=== PATIENT | female | born 1970 | race Caucasian/White ===

== ENCOUNTER 2018-05-28 13:17 | Inpatient (IN) | payer BC ==
[~2018-05-28] VITALS: Ht 162.6 cm; Wt 148.3 kg
[2018-05-28] MEDS ORDERED: MORPHINE SULFATE INJ 4 MG/ML INJ IV STA (13:33)
[2018-05-28] MEDS ORDERED: ONDANSETRON HCL INJ 2 MG/ML VIAL IV STA (13:33)
[2018-05-28] MEDS ORDERED: VANCOMYCIN 1GM/NS 250 ML 250 ML IV ONE (14:15)
--- NOTE | 2018-05-28 14:33 | Diagnostic Imaging Report ---
PROCEDURE: CHEST SINGLE (PORTABLE) COMPARISON: None. INDICATIONS: SHORTNESS OF BREATH, LEFT ANKLE INFECTION FINDINGS: LUNGS: No consolidations or edema. PLEURA: No effusions or pneumothorax. HEART \T\ MEDIASTINUM: The heart is within normal size-limits. BONES \T\ SOFT TISSUES: No acute findings. CONCLUSION: No acute thoracic abnormality. Sandoval Salinas D.O. Dictated by: Sandoval Salinas D.O. on 05/28/2018 at 14:37 Electronically approved by: Sandoval Salinas D.O. on 05/28/2018 at 14:37
[2018-05-28 14:41] LABS: BASOPHILS % 0.4 % (0.0-1.0); HEMATOCRIT 40.1 % (34.2-44.1); LYMPHOCYTES # (AUTO) 1.6 (1.0-3.2); LYMPHOCYTES % 27.7 % (18.0-39.1); MEAN CORPUSCULAR HEMOGLOBIN 27.8 pg (28-32); MEAN CORPUSCULAR HGB CONC 32.4 g/dL (31-35); MEAN CORPUSCULAR VOLUME 85.7 fL (81-99); MONOCYTES # (AUTO) 0.4 (0.2-0.8); MONOCYTES % 6.2 % (4.4-11.3); NEUTROPHILS # (AUTO) 3.7 (2.1-6.9); NEUTROPHILS % 65.3 % (38.7-80.0); PLATELET COUNT 102 x10e3/uL (140-360); RED BLOOD COUNT 4.68 x10e6/uL (3.6-5.1); RED CELL DISTRIBUTION WIDTH 15.9 % (11.7-14.4)
[2018-05-28 14:44] LABS: BILIRUBIN,URINE NEGATIVE (NEGATIVE); CLARITY,URINE SL CLOUDY (CLEAR); COLOR,URINE YELLOW (YELLOW); KETONES,URINE NEGATIVE (NEGATIVE); LEUKOCYTE ESTERASE ,URINE NEGATIVE (NEGATIVE); NITRITE,URINE NEGATIVE (NEGATIVE); PROTEIN,URINE DIPSTICK NEGATIVE (NEGATIVE); URINE UROBILINOGEN 1 mg/dL (0.2 - 1)
[2018-05-28 14:49] LABS: INR 1.2; PROTHROMBIN TIME 14.3 seconds (11.9-14.5)
[2018-05-28 14:50] LABS: PARTIAL THROMBOPLASTIN TIME 41.9 seconds (23.8-35.5)
[2018-05-28 14:57] LABS: ALANINE AMINOTRANSFERASE 38 IU/L (0-55); ALBUMIN 3.6 g/dL (3.5-5.0); ALBUMIN/GLOBULIN RATIO 0.8 (0.8-2.0); ALKALINE PHOSPHATASE 136 IU/L (40-150); ANION GAP 12.9 mmol/L (8-16); BLOOD UREA NITROGEN 9 mg/dL (7-26); BUN/CREATININE RATIO 12 (6-25); CALCIUM 9.3 mg/dL (8.4-10.2); CARBON DIOXIDE 23 mmol/L (22-29); CHLORIDE 108 mmol/L (98-107); CREATINE KINASE 71 IU/L (29-168); CREATININE, SERUM 0.75 mg/dL (0.57-1.11); EST GLOMERULAR FILTRATION RATE > 60 ML/MIN (60-); GLUCOSE 91 mg/dL (74-118); POTASSIUM 3.9 mmol/L (3.5-5.1); SODIUM 140 mmol/L (136-145)
[2018-05-28 14:58] LABS: BACTERIA,URINE MANY /HPF; EPITHELIAL CELLS,URINE MANY /LPF; RBC,URINE 0-5 /HPF (0-5)
[2018-05-28] MEDS ORDERED: SODIUM CHLORIDE 0.9% 1000ML 1,000 ML IV SCH (15:48)
[2018-05-28] MEDS ORDERED: MORPHINE SULFATE 2 MG/ML SYR IV PRN (16:00)
[2018-05-28] MEDS ORDERED: HYDROMORPHONE HC2 MG PO ×2 (16:52→20:14)
[2018-05-28] MEDS ORDERED: CYMBALTA60 MG (16:52)
[2018-05-28] MEDS ORDERED: LYRICA50 MG (16:52)
[2018-05-28] MEDS ORDERED: PIPER-TAZ 3.375 GM 50 ML IV SCH (18:00)
[2018-05-28] MEDS ORDERED: farxiga PO (18:36)
[2018-05-28 19:50] VITALS: BP 164/86
[2018-05-28 20:00] VITALS: BP 164/86
[2018-05-28 20:09] VITALS: BP 164/86
[2018-05-28] MEDS ORDERED: HYDROCODONE/APAP 5MG-325MG TAB PO PRN (20:15)
[2018-05-28] MEDS ORDERED: MORPHINE SULFATE INJ 4 MG/ML INJ IV PRN (20:15)
[2018-05-28] MEDS ORDERED: HYDRALAZINE HCL 20 MG/ML VIAL IV PRN (20:30)
[2018-05-28] MEDS ORDERED: CLONIDINE HCL 0.1 MG TAB PO PRN (20:30)
[2018-05-28] MEDS ORDERED: ACETAMINOPHEN 325 MG TAB PO PRN (20:30)
[2018-05-28] MEDS: CEFEPIME HCL 2 GM VIAL IV SCH (20:54)
[2018-05-28] MEDS: PREGABALIN 50 MG CAP PO SCH (20:54)
[2018-05-28] MEDS ORDERED: VANCOMYCIN 1GM/NS 250 ML 250 ML IV SCH (21:00)
[2018-05-28] MEDS: HYDROMORPHONE HCL 2 MG TAB PO PRN (21:09)
[2018-05-28] MEDS: MORPHINE SULFATE 2 MG/ML SYR IV PRN (22:56)
[2018-05-29] VITALS (7 sets, daily range): BP systolic 132–158; BP diastolic 64–85
[2018-05-29] MEDS ORDERED: MORPHINE SULFATE 2 MG/ML SYR IV PRN
[2018-05-29] MEDS ORDERED: HYDROMORPHONE HCL 2 MG TAB PO PRN
[2018-05-29] MEDS ORDERED: HYDROMORPHONE HCL 2 MG TAB PO SCH
[2018-05-29] MEDS: VANCOMYCIN 1GM/NS 250 ML 250 ML IV SCH ×2 (01:40→14:45)
[2018-05-29] MEDS: HYDROMORPHONE HCL 2 MG TAB PO PRN ×5 (02:01→21:08)
[2018-05-29 04:05] LABS: BASOPHILS % 0.5 % (0.0-1.0); HEMATOCRIT 38.1 % (34.2-44.1); HEMOGLOBIN 12.2 g/dL (12.0-16.0); LYMPHOCYTES % 32.4 % (18.0-39.1); MEAN CORPUSCULAR HEMOGLOBIN 27.9 pg (28-32); MEAN CORPUSCULAR VOLUME 87.2 fL (81-99); MONOCYTES # (AUTO) 0.4 (0.2-0.8); MONOCYTES % 6.1 % (4.4-11.3); NEUTROPHILS # (AUTO) 3.8 (2.1-6.9); NEUTROPHILS % 60.8 % (38.7-80.0); PLATELET COUNT 97 x10e3/uL (140-360); RED BLOOD COUNT 4.37 x10e6/uL (3.6-5.1); RED CELL DISTRIBUTION WIDTH 15.9 % (11.7-14.4)
[2018-05-29 04:20] LABS: ANION GAP 11.3 mmol/L (8-16); BLOOD UREA NITROGEN 10 mg/dL (7-26); BUN/CREATININE RATIO 14 (6-25); CALCIUM 9.3 mg/dL (8.4-10.2); CARBON DIOXIDE 25 mmol/L (22-29); CHLORIDE 106 mmol/L (98-107); CHOL/HDL RATIO 4.4 (3.0-3.6); CHOLESTEROL 128 MD/DL (0-199); CREATININE, SERUM 0.74 mg/dL (0.57-1.11); EST GLOMERULAR FILTRATION RATE > 60 ML/MIN (60-); GLUCOSE 95 mg/dL (74-118); HDL CHOLESTEROL 29 MG/DL (40-60); LDL CHOLESTEROL 77 MG/DL (60-130); MAGNESIUM 2.1 MG/DL (1.3-2.1); POTASSIUM 4.3 mmol/L (3.5-5.1); SODIUM 138 mmol/L (136-145); TRIGLYCERIDES 108 MG/DL (0-149)
[2018-05-29 04:28] LABS: B-TYPE NATRIURETIC PEPTIDE2 15.8 pg/mL (0-100)
[2018-05-29 04:41] LABS: FREE T4 (FREE THYROXINE) 0.99 ng/dL (0.9-1.8); THYROID STIMULATING HORMONE 4.355 uIU/mL (0.350-4.940)
[2018-05-29] MEDS: CEFEPIME HCL 2 GM VIAL IV SCH ×2 (07:15→18:17)
[2018-05-29] MEDS: FAMOTIDINE 20 MG TAB PO SCH ×2 (07:47→16:30)
[2018-05-29] MEDS: MORPHINE SULFATE 2 MG/ML SYR IV PRN ×2 (08:15→19:31)
[2018-05-29] MEDS: ONDANSETRON HCL INJ 2 MG/ML VIAL IV PRN (08:15)
[2018-05-29] MEDS: FARXIGA 10 MG PO SCH (09:00)
[2018-05-29] MEDS: PREGABALIN 50 MG CAP PO SCH ×3 (09:26→21:08)
[2018-05-29] MEDS ORDERED: DEXTROSE 50% SYRINGE 50 ML IV PRN (13:00)
--- NOTE | 2018-05-29 16:05 | History and Physical ---
PRIMARY CARE PROVIDER: Dr. Sami Stanley who does not come here. CHIEF COMPLAINT: Cellulitis, left lower leg. HISTORY OF PRESENT ILLNESS: Ms. Hou is a 48-year-old lady who has noticed for the past 2 days worsening erythema and swelling about the left ankle. REVIEW OF SYSTEMS: She has had some subjective fever and chills. She denies weight loss. She denies sinus congestion or sore throat. She denies chest pain or palpitation. She denies shortness of breath, wheezing or cough. She denies abdominal pain, nausea, vomiting, or melena. She denies dysuria or flank pain. She has a rash and cellulitis of the left lower extremity as noted above. She denies joint pain or swelling. She denies bleeding or bruising. She denies headache, vertigo or loss of consciousness. Denies depression, agitation, homicide, or suicidal ideation. PAST MEDICAL HISTORY: Significant for type 2 diabetes, which is well controlled. Her A1c level is 6.6. She also has lupus and fibromyalgia for which she takes Dilaudid 2 mg q.4 h. as needed and Lyrica 50 mg 3 times a day. Cymbalta 60 mg daily. For her diabetes, she takes Farxiga 10 mg daily. She has a distant history of hysterectomy and appendectomy. She is a nonsmoker. ALLERGIES: SHE HAS A STATED ALLERGY TO PENICILLIN. FAMILY HISTORY: Has some diabetes. SOCIAL HISTORY: The patient is . [place] is her primary language. She does not smoke, drink or use illegal drugs. She is generally independently functioning. PHYSICAL EXAMINATION PSYCHIATRIC: She is alert and oriented times 3 with normal mood and affect. CONSTITUTIONAL: She is somewhat overweight with a BMI of 56. Weighs 327 pounds. Would classify her as morbidly obese. VITAL SIGNS: Blood pressure 132/82, pulse 83, respiratory rate 19, O2 sat 94% on room air, temperature 97.4. HEENT: Her head is atraumatic. Her eyes are anicteric with clear conjunctivae. Ears and nares are without erythema or discharge. Oropharynx is clear. NECK: Supple with no mass or thyromegaly. LYMPHATIC SYSTEM: She has no palpable cervical, axillary or inguinal adenopathy. CARDIOVASCULAR: Her heart has a regular rate and rhythm without murmur or extra heart sounds. She has no carotid bruit. She has trace edema in the left pretibial and ankle area. No edema on the right. She has palpable dorsal pedal pulses. RESPIRATORY: Lungs are clear to auscultation and percussion with normal respiratory effort. GASTROINTESTINAL: Abdomen is soft without organomegaly, masses or tenderness. She has normal bowel sounds present. CUTANEOUS: Her skin is warm and dry to touch. She has erythema extending from the left ankle to just below the knee that is circumferential with some mild swelling and edema. MUSCULOSKELETAL: Her joints are in normal alignment without erythema or swelling. She has no calf tenderness. NEUROLOGIC: Nonfocal with intact cranial nerves and no motor or sensory deficits. DIAGNOSTIC STUDIES: Chest x-ray shows no acute disease. Venous Doppler of the left leg is negative for DVT. Her CBC shows a white count of 6.18 with 61% neutrophils, hemoglobin 12.2, hematocrit 38.1, and platelet count 97,000. Her coags are normal. Chemistry shows normal electrolytes. CO2 is 25, creatinine 0.74, BUN 10, glucose is 95. Calcium 9.3. Magnesium 2.1. Transaminases, bilirubin and alk phos were all normal. A1c level is 6.6. Cholesterol 128, triglyceride 108, HDL 29, LDL 77. TSH is 4.355 and free T4 is 0.99, both normal. IMPRESSION AND PLAN 1. Cellulitis, left lower leg: Intravenous vancomycin and cefepime started. Leg elevation. 2. Type 2 diabetes which appears well controlled: Will continue Farxiga and add sliding scale insulin as needed. 3. Lupus and fibromyalgia: The patient will continue her Dilaudid and Lyrica. Cymbalta is not on formulary. 4. For prophylaxis, will use Lovenox for deep venous thrombosis prophylaxis and Pepcid for gastrointestinal prophylaxis. Job#: [id number] UT
[2018-05-29] MEDS: INSULIN REGULAR, HUMAN 100 UNIT/1 ML 3ML VIAL SQ SCH ×2 (16:30→21:00)
[2018-05-29] MEDS: ENOXAPARIN SOD INJ 40 MG/0.4 ML SYR SC SCH (17:13)
[2018-05-29] MEDS: HYDROCODONE/APAP 7.5MG-325MG 1 EA TAB PO PRN (23:45)
[2018-05-30] VITALS (7 sets, daily range): BP systolic 123–157; BP diastolic 63–79
[2018-05-30] MEDS: VANCOMYCIN 1GM/NS 250 ML 250 ML IV SCH ×2 (02:31→14:38)
[2018-05-30] MEDS: HYDROMORPHONE HCL 2 MG TAB PO PRN ×3 (03:20→19:38)
[2018-05-30 04:21] LABS: BASOPHILS % 0.4 % (0.0-1.0); HEMATOCRIT 37.6 % (34.2-44.1); HEMOGLOBIN 11.9 g/dL (12.0-16.0); LYMPHOCYTES # (AUTO) 1.5 (1.0-3.2); LYMPHOCYTES % 31.7 % (18.0-39.1); MEAN CORPUSCULAR HEMOGLOBIN 27.6 pg (28-32); MEAN CORPUSCULAR HGB CONC 31.6 g/dL (31-35); MEAN CORPUSCULAR VOLUME 87.2 fL (81-99); MONOCYTES # (AUTO) 0.3 (0.2-0.8); MONOCYTES % 6.1 % (4.4-11.3); NEUTROPHILS # (AUTO) 2.8 (2.1-6.9); NEUTROPHILS % 61.4 % (38.7-80.0); PLATELET COUNT 106 x10e3/uL (140-360); RED BLOOD COUNT 4.31 x10e6/uL (3.6-5.1); RED CELL DISTRIBUTION WIDTH 15.6 % (11.7-14.4)
[2018-05-30 04:33] LABS: ANION GAP 11.3 mmol/L (8-16); BLOOD UREA NITROGEN 11 mg/dL (7-26); BUN/CREATININE RATIO 14 (6-25); CALCIUM 9.4 mg/dL (8.4-10.2); CARBON DIOXIDE 27 mmol/L (22-29); CHLORIDE 104 mmol/L (98-107); CREATININE, SERUM 0.81 mg/dL (0.57-1.11); EST GLOMERULAR FILTRATION RATE > 60 ML/MIN (60-); GLUCOSE 157 mg/dL (74-118); POTASSIUM 4.3 mmol/L (3.5-5.1); SODIUM 138 mmol/L (136-145)
[2018-05-30] MEDS: CEFEPIME HCL 2 GM VIAL IV SCH ×2 (06:45→18:33)
[2018-05-30] MEDS: HYDROCODONE/APAP 7.5MG-325MG 1 EA TAB PO PRN ×2 (07:30→16:15)
[2018-05-30] MEDS: INSULIN REGULAR, HUMAN 100 UNIT/1 ML 3ML VIAL SQ SCH ×4 (07:30→21:05)
[2018-05-30] MEDS: FAMOTIDINE 20 MG TAB PO SCH ×2 (07:34→16:30)
[2018-05-30] MEDS: FARXIGA 10 MG PO SCH (09:00)
[2018-05-30] MEDS: PREGABALIN 50 MG CAP PO SCH ×3 (09:34→20:42)
[2018-05-30] MEDS: DOCUSATE SODIUM 100 MG CAP PO SCH ×2 (10:30→17:26)
[2018-05-30] MEDS: AMLODIPINE BESYLATE 10 MG TAB PO SCH (10:30)
[2018-05-30] MEDS: ENOXAPARIN SOD INJ 40 MG/0.4 ML SYR SC SCH (17:26)
[2018-05-31] VITALS (8 sets, daily range): BP systolic 118–153; BP diastolic 58–90
[2018-05-31] MEDS: POLYETHYLENE GLYCOL 3350 17 GM PACK PO PRN ×2 (00:15→16:25)
[2018-05-31] MEDS: HYDROCODONE/APAP 7.5MG-325MG 1 EA TAB PO PRN ×3 (00:17→18:43)
[2018-05-31] MEDS: VANCOMYCIN 1GM/NS 250 ML 250 ML IV SCH ×2 (03:13→15:04)
[2018-05-31 05:00] LABS: BASOPHILS % 0.7 % (0.0-1.0); EOSINOPHILS % 0.2 % (0.0-6.0); HEMATOCRIT 35.6 % (34.2-44.1); HEMOGLOBIN 11.3 g/dL (12.0-16.0); LYMPHOCYTES # (AUTO) 1.5 (1.0-3.2); MEAN CORPUSCULAR HEMOGLOBIN 27.7 pg (28-32); MEAN CORPUSCULAR HGB CONC 31.7 g/dL (31-35); MEAN CORPUSCULAR VOLUME 87.3 fL (81-99); MONOCYTES # (AUTO) 0.3 (0.2-0.8); MONOCYTES % 6.1 % (4.4-11.3); NEUTROPHILS # (AUTO) 2.6 (2.1-6.9); NEUTROPHILS % 59.8 % (38.7-80.0); PLATELET COUNT 107 x10e3/uL (140-360); RED BLOOD COUNT 4.08 x10e6/uL (3.6-5.1); RED CELL DISTRIBUTION WIDTH 15.4 % (11.7-14.4)
[2018-05-31 05:13] LABS: ANION GAP 9.8 mmol/L (8-16); BLOOD UREA NITROGEN 9 mg/dL (7-26); BUN/CREATININE RATIO 13 (6-25); CALCIUM 9.3 mg/dL (8.4-10.2); CARBON DIOXIDE 27 mmol/L (22-29); CHLORIDE 105 mmol/L (98-107); CREATININE, SERUM 0.69 mg/dL (0.57-1.11); EST GLOMERULAR FILTRATION RATE > 60 ML/MIN (60-); GLUCOSE 115 mg/dL (74-118); POTASSIUM 3.8 mmol/L (3.5-5.1); SODIUM 138 mmol/L (136-145)
[2018-05-31] MEDS: CEFEPIME HCL 2 GM VIAL IV SCH ×2 (06:27→17:45)
[2018-05-31] MEDS: HYDROMORPHONE HCL 2 MG TAB PO PRN ×4 (06:29→21:17)
[2018-05-31] MEDS: INSULIN REGULAR, HUMAN 100 UNIT/1 ML 3ML VIAL SQ SCH ×4 (07:30→21:00)
[2018-05-31] MEDS: FAMOTIDINE 20 MG TAB PO SCH ×2 (07:50→17:45)
[2018-05-31] MEDS ORDERED: BISACODYL 5 MG TAB EC PO PRN (08:15)
[2018-05-31] MEDS: DOCUSATE SODIUM 100 MG CAP PO SCH ×2 (08:16→17:00)
[2018-05-31] MEDS: PREGABALIN 50 MG CAP PO SCH ×3 (08:16→21:17)
[2018-05-31] MEDS: AMLODIPINE BESYLATE 10 MG TAB PO SCH (08:16)
[2018-05-31] MEDS: ONDANSETRON HCL INJ 2 MG/ML VIAL IV PRN (08:53)
[2018-05-31] MEDS: FARXIGA 10 MG PO SCH (09:00)
[2018-05-31] MEDS: ENOXAPARIN SOD INJ 40 MG/0.4 ML SYR SC SCH (17:45)
[2018-06-01] VITALS (8 sets, daily range): BP systolic 109–148; BP diastolic 57–101
[2018-06-01] MEDS: HYDROCODONE/APAP 7.5MG-325MG 1 EA TAB PO PRN ×3 (00:51→18:13)
[2018-06-01] MEDS: VANCOMYCIN 1GM/NS 250 ML 250 ML IV SCH ×2 (01:50→14:25)
[2018-06-01 03:25] LABS: BASOPHILS % 0.6 % (0.0-1.0); HEMATOCRIT 38.2 % (34.2-44.1); HEMOGLOBIN 12.4 g/dL (12.0-16.0); LYMPHOCYTES # (AUTO) 1.9 (1.0-3.2); LYMPHOCYTES % 36.4 % (18.0-39.1); MEAN CORPUSCULAR HEMOGLOBIN 27.7 pg (28-32); MEAN CORPUSCULAR HGB CONC 32.5 g/dL (31-35); MEAN CORPUSCULAR VOLUME 85.5 fL (81-99); MONOCYTES # (AUTO) 0.3 (0.2-0.8); MONOCYTES % 6.7 % (4.4-11.3); NEUTROPHILS # (AUTO) 2.9 (2.1-6.9); NEUTROPHILS % 55.9 % (38.7-80.0); PLATELET COUNT 109 x10e3/uL (140-360); RED BLOOD COUNT 4.47 x10e6/uL (3.6-5.1); RED CELL DISTRIBUTION WIDTH 15.2 % (11.7-14.4)
[2018-06-01] MEDS: HYDROMORPHONE HCL 2 MG TAB PO PRN ×4 (03:36→22:11)
[2018-06-01 03:41] LABS: ANION GAP 13.1 mmol/L (8-16); BLOOD UREA NITROGEN 10 mg/dL (7-26); BUN/CREATININE RATIO 14 (6-25); CALCIUM 9.7 mg/dL (8.4-10.2); CARBON DIOXIDE 26 mmol/L (22-29); CHLORIDE 103 mmol/L (98-107); EST GLOMERULAR FILTRATION RATE > 60 ML/MIN (60-); GLUCOSE 128 mg/dL (74-118); POTASSIUM 4.1 mmol/L (3.5-5.1); SODIUM 138 mmol/L (136-145)
[2018-06-01] MEDS: CEFEPIME HCL 2 GM VIAL IV SCH ×2 (06:52→18:13)
[2018-06-01] MEDS: INSULIN REGULAR, HUMAN 100 UNIT/1 ML 3ML VIAL SQ SCH ×4 (07:30→21:00)
[2018-06-01] MEDS: FAMOTIDINE 20 MG TAB PO SCH ×2 (08:00→17:09)
[2018-06-01] MEDS: PREGABALIN 50 MG CAP PO SCH ×3 (08:38→22:10)
[2018-06-01] MEDS: AMLODIPINE BESYLATE 10 MG TAB PO SCH (08:38)
[2018-06-01] MEDS: FARXIGA 10 MG PO SCH (08:38)
[2018-06-01] MEDS: DOCUSATE SODIUM 100 MG CAP PO SCH ×2 (08:38→17:09)
[2018-06-01] MEDS ORDERED: POTASSIUM CHLORIDE 10 MEQ TABCR PO ONE (09:30)
[2018-06-01] MEDS ORDERED: FUROSEMIDE INJ 10 MG/ML 2 ML VIAL IV ONE (09:30)
[2018-06-01] MEDS ORDERED: CIPRO500 MG PO (09:43)
[2018-06-01] MEDS ORDERED: BACTRIM DS TAB1 EACH PO (09:43)
[2018-06-01] MEDS ORDERED: COLACE100 M1 PO (09:43)
[2018-06-01] MEDS ORDERED: MIRALAX17 GM PO (09:43)
[2018-06-01] MEDS ORDERED: CITRATE OF MAGNESIA 300ML BOTTLE PO ONE (09:45)
[2018-06-01] MEDS: ONDANSETRON HCL INJ 2 MG/ML VIAL IV PRN (10:48)
--- NOTE | 2018-06-01 15:34 | Discharge Summary ---
ADMITTING DIAGNOSES 1. Left lower leg cellulitis. 2. Type-2 diabetes. 3. Lupus. 4. Fibromyalgia. DISCHARGE DIAGNOSES 1. Left lower leg cellulitis. 2. Type-2 diabetes. 3. Lupus. 4. Fibromyalgia. HISTORY: The patient has a history of type-2 diabetes, lupus, fibromyalgia, diabetes and surgical history of hysterectomy and appendectomy. HOSPITAL COURSE: This 48-year-old female has noticed some erythema and swelling to the left lower extremity for the past 2 days. On admission, she was started on IV vancomycin and cefepime. She was continued on home medications for fibromyalgia, lupus and type-2 diabetes. Chest x-ray on admission showed no acute thoracic abnormality. Left lower extremity venous Doppler was negative. After a few days, the patient showed good improvement, and she is ready to discharge home. On the day of discharge, sodium is 138, potassium 4.1, creatinine 0.70. GFR over 50. WBC 5.11, hemoglobin 12.4, hematocrit 38.2. Vital signs are stable. The patient is afebrile. The patient and understand discharge instructions and agree with the plan. Dictated by: Laura Vickers NP JAEL SOARES MD Job#: [id number]
[2018-06-01] MEDS: ENOXAPARIN SOD INJ 40 MG/0.4 ML SYR SC SCH (17:09)
[2018-06-01] MEDS ORDERED: ZOLPIDEM TARTRATE 5 MG TAB PO ONE (20:45)
[2018-06-02] VITALS: BP 115/65
[2018-06-02] MEDS: VANCOMYCIN 1GM/NS 250 ML 250 ML IV SCH (01:50)
[2018-06-02 04:00] VITALS: BP 116/62
[2018-06-02] MEDS: CEFEPIME HCL 2 GM VIAL IV SCH (05:36)
[2018-06-02] MEDS: HYDROCODONE/APAP 7.5MG-325MG 1 EA TAB PO PRN (05:37)
[2018-06-02 07:25] VITALS: BP 123/82
[2018-06-02] MEDS: INSULIN REGULAR, HUMAN 100 UNIT/1 ML 3ML VIAL SQ SCH (07:30)
[2018-06-02 07:49] VITALS: BP 123/82
[2018-06-02] MEDS: FARXIGA 10 MG PO SCH (08:43)
[2018-06-02] MEDS: AMLODIPINE BESYLATE 10 MG TAB PO SCH (08:49)
[2018-06-02] MEDS: FAMOTIDINE 20 MG TAB PO SCH (08:49)
[2018-06-02] MEDS: DOCUSATE SODIUM 100 MG CAP PO SCH (08:49)
[2018-06-02] MEDS: PREGABALIN 50 MG CAP PO SCH (08:49)
--- NOTE | 2018-06-02 17:17 | Discharge Summary ---
ADMISSION DIAGNOSES 1. Left lower leg cellulitis. 2. Type 2 diabetes. 3. Lupus. 4. Fibromyalgia. DISCHARGE DIAGNOSES 1. Left lower leg cellulitis. 2. Type 2 diabetes. 3. Lupus. 4. Fibromyalgia. HISTORY: The patient has a history of type 2 diabetes, lupus, fibromyalgia. The patient has a surgical history of hysterectomy and appendectomy. HOSPITAL COURSE: A 48-year-old female who noticed erythema and swelling to the left lower extremity for the past 2 days. On admission, she was started on IV vancomycin and cefepime. She was continued on home meds for fibromyalgia, lupus and type 2 diabetes. Chest x-ray on admission showed no acute thoracic abnormality. Left lower extremity venous Doppler was negative. The patient showed improvement of the cellulitis of the left lower leg after a few days of IV antibiotics and is ready for discharge home. After the initial discharge order was written, the patient said that she had not had a bowel movement in multiple days. Her discharge was contingent on her having a bowel movement which she did not have on the , so the patient was not discharged home until the . Discharge instructions were discussed with the patient and and they understand discharge instructions and followup. Dictated by: Laura Vickers NP JAEL SOARES MD Job#: [id number]
== END 2018-06-02 09:40 | disposition home or self-care (01) | DRG 603 ==
LOC: ER 14:18 → ERHOLD 15:56 → MED/SURG3 18:39
PROVIDERS: ADMIT Internal Medicine; ATTEND Internal Medicine
DX: L03.116 Cellulitis of left lower limb (principal); E11.8 Type 2 diabetes mellitus with unspecified complications; M32.9 Systemic lupus erythematosus, unspecified; M79.7 Fibromyalgia; Z79.4 Long term (current) use of insulin
CPT/HCPCS: 36415; 71045; 80048; 80053; 80061; 80202; 81001; 82550; 82553; 82948; 83036; 83735; 83880; 84439; 84443; 84484; 85025; 85379; 85610; 85730; 93005; 93971; 94660; 96367; 96372; 96376; 99284; J0692; J1650; J1940; J2270; J2405; J3370; J7030